=== PATIENT | female | born 1990 | race Caucasian/White ===

== ENCOUNTER → 2020-01-22 09:11 | Outpatient (BNVA) | payer MEDICAID, SELFPAY | PROVIDERS: Family Provider Nurse Practitioner; PCP Nurse Practitioner; Visit Provider Nurse Practitioner | DX: F42.9 Obsessive-compulsive disorder, unspecified (principal); Q75.4 Mandibulofacial dysostosis; F72 Severe intellectual disabilities | CPT/HCPCS: 99214 ==

== ENCOUNTER → 2020-04-13 07:45 | Outpatient (BNVA) | payer MEDICAID, SELFPAY | PROVIDERS: Family Provider Nurse Practitioner; PCP Nurse Practitioner; Visit Provider Nurse Practitioner | DX: F72 Severe intellectual disabilities (principal); F42.9 Obsessive-compulsive disorder, unspecified; Q75.4 Mandibulofacial dysostosis | CPT/HCPCS: 99214 ==

== ENCOUNTER → 2020-05-10 07:40 | Outpatient (BNVA) | payer MEDICAID, SELFPAY | PROVIDERS: Family Provider Nurse Practitioner; PCP Nurse Practitioner; Visit Provider Nurse Practitioner | DX: F72 Severe intellectual disabilities (principal); Q75.4 Mandibulofacial dysostosis; F42.9 Obsessive-compulsive disorder, unspecified | CPT/HCPCS: 99214 ==

== ENCOUNTER → 2020-05-24 08:55 | Outpatient (BNVA) | payer MEDICAID, SELFPAY | PROVIDERS: Family Provider Nurse Practitioner; PCP Nurse Practitioner; Visit Provider Nurse Practitioner | DX: K59.09 Other constipation (principal); F42.9 Obsessive-compulsive disorder, unspecified; F72 Severe intellectual disabilities; Q75.4 Mandibulofacial dysostosis; F43.12 Post-traumatic stress disorder, chronic; Z11.3 Encounter for screening for infections with a predominantly sexual mode of transmission | CPT/HCPCS: 74018; 80053; 80061; 83036; 85025; 86592 ==

== ENCOUNTER → 2020-05-26 11:43 | Outpatient (BNVA) | payer MEDICAID, SELFPAY | PROVIDERS: Family Provider Nurse Practitioner; PCP Nurse Practitioner; Visit Provider Nurse Practitioner | DX: K59.09 Other constipation (principal); Z11.3 Encounter for screening for infections with a predominantly sexual mode of transmission | CPT/HCPCS: 81000 ==

== ENCOUNTER → 2020-05-31 11:25 | Outpatient (BNVA) | payer MEDICAID, SELFPAY | PROVIDERS: Family Provider Nurse Practitioner; PCP Nurse Practitioner; Visit Provider Nurse Practitioner Women's Health | DX: Z30.9 Encounter for contraceptive management, unspecified (principal); F42.9 Obsessive-compulsive disorder, unspecified; Z30.013 Encounter for initial prescription of injectable contraceptive | CPT/HCPCS: 88175 ==

== ENCOUNTER → 2020-06-07 07:56 | Outpatient (BNVA) | payer MEDICAID, SELFPAY | PROVIDERS: Family Provider Nurse Practitioner; PCP Nurse Practitioner; Visit Provider Nurse Practitioner | DX: F72 Severe intellectual disabilities (principal); Q75.4 Mandibulofacial dysostosis; F42.9 Obsessive-compulsive disorder, unspecified | CPT/HCPCS: 99213 ==

== ENCOUNTER → 2020-09-06 07:49 | Outpatient (BNVA) | payer MEDICAID, SELFPAY | PROVIDERS: Family Provider Nurse Practitioner; PCP Nurse Practitioner; Visit Provider Nurse Practitioner | DX: F42.9 Obsessive-compulsive disorder, unspecified (principal); F72 Severe intellectual disabilities; Q75.4 Mandibulofacial dysostosis | CPT/HCPCS: 99213 ==

== ENCOUNTER → 2020-12-02 07:41 | Outpatient (BNVA) | payer MEDICAID, SELFPAY | PROVIDERS: Family Provider Nurse Practitioner; PCP Nurse Practitioner; Visit Provider Nurse Practitioner | DX: F42.9 Obsessive-compulsive disorder, unspecified (principal); Q75.4 Mandibulofacial dysostosis; F72 Severe intellectual disabilities | CPT/HCPCS: 99213 ==

== ENCOUNTER → 2021-02-23 10:05 | Outpatient (BNVA) | payer MEDICAID, SELFPAY | PROVIDERS: Family Provider Nurse Practitioner; PCP Nurse Practitioner; Visit Provider Nurse Practitioner | DX: F42.9 Obsessive-compulsive disorder, unspecified (principal); F72 Severe intellectual disabilities; Q75.4 Mandibulofacial dysostosis | CPT/HCPCS: 99214 ==

== ENCOUNTER → 2021-05-12 09:56 | Outpatient (BNVA) | payer MEDICAID, SELFPAY | PROVIDERS: Family Provider Nurse Practitioner; PCP Nurse Practitioner; Visit Provider Nurse Practitioner | DX: F42.9 Obsessive-compulsive disorder, unspecified (principal); Q75.4 Mandibulofacial dysostosis; F72 Severe intellectual disabilities | CPT/HCPCS: 99214 ==

== ENCOUNTER → 2021-06-09 08:35 | Outpatient (BNVA) | payer MEDICAID, SELFPAY | PROVIDERS: Family Provider Nurse Practitioner; PCP Nurse Practitioner; Visit Provider Nurse Practitioner | DX: F42.9 Obsessive-compulsive disorder, unspecified (principal) | CPT/HCPCS: 81000 ==

== ENCOUNTER → 2021-06-12 08:47 | Outpatient (BNVA) | payer MEDICAID, SELFPAY | PROVIDERS: Family Provider Nurse Practitioner; PCP Nurse Practitioner; Visit Provider Nurse Practitioner | DX: F42.9 Obsessive-compulsive disorder, unspecified (principal); Z13.6 Encounter for screening for cardiovascular disorders | CPT/HCPCS: 80053; 80061; 84443; 85025 ==

== ENCOUNTER → 2021-07-14 07:43 | Outpatient (BNVA) | payer MEDICAID, SELFPAY | PROVIDERS: Family Provider Nurse Practitioner; PCP Nurse Practitioner; Visit Provider Nurse Practitioner | DX: F42.9 Obsessive-compulsive disorder, unspecified (principal); Q75.4 Mandibulofacial dysostosis; F72 Severe intellectual disabilities | CPT/HCPCS: 99214 ==

== ENCOUNTER → 2021-10-11 10:05 | Outpatient (BNVA) | payer MEDICAID, SELFPAY | PROVIDERS: Family Provider Nurse Practitioner; PCP Nurse Practitioner; Visit Provider Nurse Practitioner | DX: F42.9 Obsessive-compulsive disorder, unspecified (principal); F72 Severe intellectual disabilities; Q75.4 Mandibulofacial dysostosis | CPT/HCPCS: 99214 ==

== ENCOUNTER → 2022-01-02 09:49 | Outpatient (BNVA) | payer MEDICAID, SELFPAY | PROVIDERS: Family Provider Nurse Practitioner; PCP Nurse Practitioner; Visit Provider Nurse Practitioner | DX: F42.9 Obsessive-compulsive disorder, unspecified (principal); F72 Severe intellectual disabilities; Q75.4 Mandibulofacial dysostosis | CPT/HCPCS: 99214 ==

== ENCOUNTER 2022-03-01 13:30 | Emergency (ER) | payer MEDICAID, SELFPAY ==
[2022-03-01 13:53] VITALS: BP 109/76; PULSE 116; RESP 18; TEMP 36.3; O2SAT 95
--- NOTE | 2022-03-01 14:10 | XR_ITS ---
WS: [id number] XR hand RT min 3V* [id number] REASON FOR EXAM: index finger bruising and swelling FINDINGS: Soft tissue swelling of the index finger. No fracture or other bony or joint abnormality of the index finger. The remainder of the right hand demonstrates no significant bony or joint abnormality. XR/XR hand RT min 3V* [id number] IMPRESSION: No fracture or dislocation.
--- NOTE | 2022-03-01 14:22 | W.ED.EXTPRO ---
HPI - Extremity Problem General: Chief complaint: Extremity Injury, Upper Stated complaint: injury to finger on right hand Time Seen by Provider: 03/01/22 14:09 History of Present Illness: Patient is a 31-year-old female who comes to the ED with right index finger bruising and swelling. 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 Patient lives in a intermediate and is here with pit clerk. She says that yesterday patient hit her hand on a picnic table and then punched it as well. She was given 325 mg of Tylenol around noon today for pain. Associated symptoms: Deny chest pain, fever(s) or rash Review of Systems Const: Denies: fever(s), chills or fatigue Eyes: Denies: change in vision or eye discomfort ENMT: Denies: throat pain, odynophagia, nasal discharge or nasal congestion Card: Denies: chest pain, palpitations, edema, swelling of feet/ankles, dyspnea on exertion or orthopnea Resp: Denies: dyspnea, productive cough or non-productive cough GI: Denies: abdominal pain, nausea, vomiting, diarrhea, constipation or hematochezia : Denies: flank pain, dysuria or hematuria Musc: Reports: extremity pain (right index finger) and extremity swelling (Right index finger); Denies: neck pain or back pain Skin/Breast: Denies: rash or new lesions Neuro: Denies: headache(s), numbness in extremities or weakness in extremities [facility] ED PFSH: Medical History Chronic constipation Chronic organic brain syndrome Dry eyes Obsessive-compulsive disorder, unspecified Psychiatric care Raynaud's disease Severe intellectual disabilities Treacher Blank syndrome Surgical History History of eye surgery (~2007) multiple eye surgeries Family History Other Unknown family medical history Social History Smoking and tobacco status: never smoked Second hand smoke exposure: No Smoking risk assessment/counseling performed?: No Alcohol intake: never Desire information about alcohol rehabilitation?: No Counseling given: No Desire information about substance/drug rehabilitation?: No Counseling given: No Adopted: Yes Caregiver/support person: Yes Lives independently: No Household members: caregiver and other Housing: House Marital status: Single Number of children: 0 Number of grandchildren: 0 service: No Current occupational status: disabled Current occupational exposures/hazards: No Pets and animals: No History of recent travel: No Sexually active: No Current gender identity: Female Special mae needs: No Additional social history: - Tobacco use: Denies Alcohol use: Denies Drug use: Denies Physical Exam Const: COMMON NORMALS: alert EXAM LIMITATIONS: other limitations (Severe intellectual disability and nonverbal) HENMT: COMMON NORMALS: normocephalic HEAD & SCALP: normocephalic MOUTH: Normal oral and palatal mucosa present THROAT: posterior oropharynx normal and uvula midline Neck/C-Spine: COMMON NORMALS: supple GENERAL: Yes normal visual inspection Resp: COMMON NORMALS: normal respiratory effort, No retractions, No use of accessory muscles and clear to auscultation bilaterally AUSCULTATION: clear to auscultation bilaterally Cardio: COMMON NORMALS: regular rate, regular rhythm, S1 normal heart sound present, S2 normal heart sound present, No gallops present (Cardio), No clicks present (Cardio), No murmurs present (Cardio) and Peripheral pulses 2+ throughout RATE: regular rate RHYTHM: regular rhythm HEART SOUNDS: S1 normal heart sound present and S2 normal heart sound present PERIPHERAL PULSES: Peripheral pulses 2+ throughout GI: COMMON NORMALS: Normal to inspection, nondistended, normoactive bowel sounds present, Soft to palpation, non-tender and no masses PALPATION: Yes Soft to palpation : COMMON NORMALS: Yes no CVA tenderness BLADDER/KIDNEY EXAM: Yes no CVA tenderness Back/Pelvis: COMMON NORMALS: no CVA tenderness Extremity: NARRATIVE EXTREMITY EXAM: Right index finger has swelling and ecchymosis seen in between the MCP and PIP joint. No damage to distal tip of finger. Does appear to be uncomfortable with palpation of index finger. Neurovascular tact. No nailbed or nail damage noted. Neuro: COMMON NORMALS: moves all extremities SENSORIUM/ORIENTATION: Yes alert Skin: GENERAL SKIN EXAM: dry skin Course Vital Signs: Vital signs: Vital Signs Temperature 97.3 F L 03/01/22 13:53 Pulse Rate 116 H 03/01/22 13:53 Respiratory Rate 18 03/01/22 13:53 Blood Pressure 109/76 03/01/22 13:53 Pulse Oximetry 95 03/01/22 13:53 MDM - Extremity (Nontraumatic) Medical Decision Making Patient is a 31-year-old female comes to the ED with right index finger swelling bruising after she hit it on a picnic table. 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 She is here with her pit clerk. No visible deformity seen. Patient does have ecchymosis and swelling of the right index finger. No nailbed or nail damage seen. Neurovascular tact. X-ray of right hand showed no acute fractures or findings. Patient diagnosed with contusion of index finger and discharged home.. return ED precautions given. Patient's caretakerunderstood agree with plan. Lab Data Radiology Impressions Hand X-Ray 03/01/22 14:10 IMPRESSION: No fracture or dislocation. Discharge Plan Discharge Patient Disposition: Home Clinical Impression: Contusion of finger of right hand Qualifiers: Encounter type: initial encounter Finger: index finger Damage to nail status: without damage Qualified Code(s): S60.021A - Contusion of right index finger without damage to nail, initial encounter Condition: Stable Prescriptions: No Action calcium carbonate-vitamin D3 600-125 mg-unit tablet 1 tab PO DAILY 30 Days Qty: 30 11RF medroxyprogesterone [Depo-Provera] 150 mg/mL syringe 150 mg IM .[id number] Qty: 1 3RF alum-mag hydroxide-simeth [Felicia-Lanta] 200-200-20 mg/5 mL suspension 30 ml PO QID PRN (Reason: indigestion) Qty: 355 0RF Rx Instructions: administer between meals lactulose 10 gram/15 mL solution 20 g PO DAILY PRN (Reason: constipation) 30 Days Qty: 900 11RF Rx Instructions: May hold if loose stools magnesium hydroxide [Milk of Magnesia] 400 mg/5 mL suspension 15 ml PO BID PRN (Reason: constipation) 30 Days Qty: 900 11RF Rx Instructions: may hold if loose stools omega-3 fatty acids [Fish Oil Concentrate] 1,000 mg capsule 2,000 mg PO DAILY 30 Days Qty: 60 11RF sennosides [Senna Laxative] 8.6 mg tablet 8.6 mg PO BID Qty: 60 11RF sodium chloride [[place] Saline] 0.65 % aerosol,spray 2 spray intranasal TID PRN (Reason: dry nasal passages) Qty: 50 0RF sunscreen Lotion See Rx Instructions TOPICAL 6XD PRN (Reason: sun exposure) Qty: 118 11RF Rx Instructions: Use SPF 50 topical 6 times daily PRN; apply at least 30 minutes before sun exposure aripiprazole [Abilify] 10 mg tablet 10 mg PO DAILY Qty: 30 2RF benztropine 1 mg tablet 1 mg PO TID Qty: 90 2RF clonazepam 0.5 mg tablet 0.5 mg PO TID Qty: 90 2RF fluvoxamine 100 mg tablet 100 mg PO .COMPLEX Qty: 90 2RF Rx Instructions: 100 mg PO; 1 tab in the am and 2 tabs at bedtime quetiapine [Seroquel XR] 300 mg tablet extended release 24 hr 300 mg PO TID Qty: 90 2RF topiramate [Topamax] 50 mg tablet 50 mg PO QAM Qty: 30 2RF promethazine-DM 6.25-15 mg/5 mL syrup 5 ml PO Q6H PRN (Reason: cough) Qty: 240 5RF acetaminophen [Tylenol] 325 mg capsule 650 mg PO Q6H PRN (Reason: fever or pain) Qty: 30 5RF Rx Instructions: for pain or elevated temp > 101F olopatadine [Pataday] 0.2 % drops 1 drop ophthalmic (eye) DAILY PRN (Reason: allegies) 30 Days Qty: 2.5 11RF doxycycline hyclate 100 mg capsule 100 mg PO BID 10 Days Qty: 20 0RF Rx Instructions: Take with food, remain upright for at least two hours. mupirocin 2 % ointment 1 applic topical TID Qty: 22 0RF Rx Instructions: Apply at 8am, 2pm, and 8pm. fluticasone propionate [Children's Flonase Allergy Rlf] 50 mcg/actuation spray,suspension 2 spray INTRANASAL DAILY Qty: 16 5RF loperamide 2 mg tablet 2 mg PO Q3H PRN (Reason: loose stool) 30 Days Qty: 32 11RF Rx Instructions: 1 tab after each loose stool, NTE 8 doses or 16mg in 24 hours clonazepam 1 mg tablet 1 mg PO DAILY PRN (Reason: anxiety) Qty: 30 0RF Niva-Plus 27 mg iron- 1 mg tablet See Rx Instructions PO .COMPLEX 30 Days Qty: 30 11RF Rx Instructions: 1 tab daily PO; hydrocortisone 0.5 % cream 1 applic topical BID PRN (Reason: skin irritation) Qty: 28.4 5RF Discharge Orders: Discharge ED (Routine); Ordered 03/01/22 Ordered By: Young Nolasco Referrals: Juni Marrufo, HE[employer] SEALING MACHINE OPERATOR-C [Primary Care Provider] - Discharge Diet: Regular Discharge Activity: Increase activity as tolerated Activity Restrictions/Additional Instructions: Follow-up with medical provider as directed in the next 7 to 10 days reevaluation. Apply cold pack on finger to help with symptoms. Continue taking all home medications as previously prescribed. You can take [id number] Tylenol as needed for pain. Return to the ER or your medical provider if condition worsens. Please read and understand discharge instructions. Thank you for choosing [facility] for your healthcare needs today. Please realize this is an emergency room and that we are providing you with a medical screening exam and this may not be complete and all inclusive of all the testing and or work up that you may need to determine your ailment or severity of your illness. It is very important that you follow up as instructed or that you return to the Emergency Department should you have concerns or if your condition changes or worsens in any way. Coding Level of Care Code ED Milk Route Supervisor for Luis Fernando Donovan Exam Comprehensive
== END 2022-03-01 15:12 | disposition home or self-care (01) ==
PROVIDERS: Emergency Provider Physician Assistant; PCP Nurse Practitioner
DX: S60.021A Contusion of right index finger without damage to nail, initial encounter (principal); W22.8XXA Striking against or struck by other objects, initial encounter; F72 Severe intellectual disabilities
CPT/HCPCS: 73130; 99281

== ENCOUNTER → 2022-03-27 09:40 | Outpatient (BNVA) | payer MEDICAID, SELFPAY | PROVIDERS: PCP Nurse Practitioner; Visit Provider Nurse Practitioner | DX: F42.9 Obsessive-compulsive disorder, unspecified (principal); F72 Severe intellectual disabilities; Q75.4 Mandibulofacial dysostosis | CPT/HCPCS: 99214 ==

== ENCOUNTER → 2022-06-11 10:34 | Outpatient (BNVA) | payer MEDICAID, SELFPAY | PROVIDERS: PCP Nurse Practitioner; Visit Provider Nurse Practitioner | DX: Z76.0 Encounter for issue of repeat prescription (principal); K30 Functional dyspepsia; K59.09 Other constipation; J30.89 Other allergic rhinitis; H04.123 Dry eye syndrome of bilateral lacrimal glands; R09.82 Postnasal drip; Z11.3 Encounter for screening for infections with a predominantly sexual mode of transmission; Z13.6 Encounter for screening for cardiovascular disorders; Z11.1 Encounter for screening for respiratory tuberculosis; Q75.4 Mandibulofacial dysostosis; F72 Severe intellectual disabilities | CPT/HCPCS: 86580 ==

== ENCOUNTER → 2022-06-11 11:02 | Outpatient (BNVA) | payer MEDICAID, SELFPAY | PROVIDERS: PCP Nurse Practitioner; Visit Provider Nurse Practitioner | DX: Z11.3 Encounter for screening for infections with a predominantly sexual mode of transmission (principal); Z13.6 Encounter for screening for cardiovascular disorders | CPT/HCPCS: 80053; 85025; 86592 ==

== ENCOUNTER → 2022-06-13 10:28 | Outpatient (BNVA) | payer MEDICAID, SELFPAY | PROVIDERS: PCP Nurse Practitioner; Visit Provider Nurse Practitioner | DX: Z11.3 Encounter for screening for infections with a predominantly sexual mode of transmission (principal); Z13.6 Encounter for screening for cardiovascular disorders | CPT/HCPCS: 81000 ==

== ENCOUNTER → 2022-12-17 13:37 | Outpatient (BNVA) | payer MEDICAID, SELFPAY | PROVIDERS: PCP Nurse Practitioner; Visit Provider Nurse Practitioner | DX: Z79.899 Other long term (current) drug therapy (principal) | CPT/HCPCS: 80061; 83036 ==

== ENCOUNTER 2023-05-27 15:00 | Observation (INO) | payer MEDICAID, SELFPAY ==
--- NOTE | 2023-05-27 15:03 | XRR_ITS ---
PROCEDURE INFORMATION: Exam: XR Chest Exam date and time: 05/27/2023 3:08 PM Age: 33 years old Clinical indication: Cough TECHNIQUE: Imaging protocol: Radiologic exam of the chest. Views: 1 view. COMPARISON: CR XR abdomen 1V* [id number] 05/24/2020 8:54 AM FINDINGS: Lungs: Parenchymal density left lower lobe of possible pneumonia this finding was not present on prior examination Pleural spaces: Unremarkable. No pleural effusion. No pneumothorax. Heart/Mediastinum: Unremarkable. No cardiomegaly. Bones/joints: Unremarkable. XR/XR chest 1V portable [id number] IMPRESSION: Left lower lobe parenchymal density consistent with pneumonia
[2023-05-27 15:24] LABS: Basophils % 0.1 %; Eosinophils % 0.1 %; Hematocrit 42.7 % (37.0-47.0); Hemoglobin 13.3 g/dL (11.5-15.3); Lymphocytes # 1.2 10^3/uL (0.8-4.8); Lymphocytes % 14.7 %; Mean Corpuscular HGB Conc 31.1 g/dL (30.0-36.0); Mean Corpuscular Hemoglobin 31.3 pg (28.0-34.0); Mean Corpuscular Volume 100.5 fl (81-99); Mean Platelet Volume 11.9 fL (7.4-10.4); Monocytes # 0.2 10^3/uL (0.2-0.9); Neutrophils # 6.51 10^3/uL (1.8-7.7); Neutrophils % 81.7 %; Nucleated Red Blood Cells % 0 %; Platelet Count 113 10^3/cmm (130-400); Red Blood Count 4.25 10^6/uL (4.1-5.3)
[2023-05-27 15:32] VITALS: BP 98/62; PULSE 116; RESP 16; TEMP 36.3; O2SAT 94; BMI 22.3
[2023-05-27 15:39] LABS: Alanine Aminotransferase 26 U/L (0-33); Albumin Level 3.4 g/dL (3.5-5.2); Alkaline Phosphatase 53 U/L (35-105); Blood Urea Nitrogen 9 mg/dL (6-20); Calcium 9.3 mg/dL (8.5-10.5); Carbon Dioxide 19 mmol/L (22-29); Chloride 107 mmol/L (98-107); Creatinine Clr Calc Pharmacy 77.6899; Globulin 3.7 g/dL (1.3-4.6); Glomerular Filtration Rate 71.3 mL/min (90-130); Glucose 83 mg/dL (65-115); Osmolality Calculated 286 mOsm/kg (285-295); Sodium 139 mmol/L (136-145); Total Bilirubin 0.2 mg/dL (0.15-1.2); Total Protein 7.1 g/dL (6.6-8.7)
[2023-05-27 15:42] LABS: Anion Gap 16.8 (5-19); Aspartate Amino Transferase 28 U/L (0-32); Potassium 3.8 mmol/L (3.5-5.1)
[2023-05-27 16:44] VITALS: BP 93/75; PULSE 114; RESP 18; O2SAT 93
[2023-05-27] MEDS: cefTRIAXone 1,000 MG in sodium chloride 0.9% (plus) 50 ML 100 MG IV (16:48)
--- NOTE | 2023-05-27 17:00 | W.ED.GENADLT ---
HPI - General Adult General: Chief complaint: General Medical Stated complaint: bob sent for labs/KUB/xray Time Seen by Provider: 05/27/23 16:14 Source: other Mode of arrival: ambulatory Limitations: altered mental status History of Present Illness: 33-year-old female who is here has a history of severe intellectual disabilities lives in [facility]. Patient's roommate was seen here earlier admitted with pneumonia patient also had a cough fever and shortness of breath pulse ox here is in the low 90s. History is not obtainable from her due to her mental disability. She is actively coughing here. Review of Systems General: Reports: ROS unobtainable due to mental status PFSH ED PFSH: Medical History Chronic constipation Chronic organic brain syndrome Dry eyes Obsessive-compulsive disorder, unspecified On combination antipsychotic drug therapy Psychiatric care Raynaud's disease Severe intellectual disabilities Treacher Blank syndrome Surgical History History of eye surgery (~2007) multiple eye surgeries Family History Other Unknown family medical history Social History Smoking and tobacco status: never smoked Second hand smoke exposure: No Smoking risk assessment/counseling performed?: No Alcohol intake: never Desire information about alcohol rehabilitation?: No Counseling given: No Substance/Drug Use: never Desire information about substance/drug rehabilitation?: No Counseling given: No Adopted: Yes Caregiver/support person: Yes Lives independently: No Housing: House Marital status: Single Number of children: 0 Number of grandchildren: 0 service: No Current occupational exposures/hazards: No Pets and animals: No Sexually active: No Do you think of yourself as: Straight/Heterosexual Special mae needs: No Physical Exam Const: COMMON NORMALS: negative for patient oriented x3 GENERAL APPEARANCE: ill appearing HENMT: COMMON NORMALS: normocephalic and atraumatic HEAD & SCALP: normocephalic and atraumatic Eye: COMMON NORMALS: conjunctivae normal CONJUNCTIVA: Yes conjunctivae normal Neck/C-Spine: COMMON NORMALS: full ROM and supple Chest: COMMONS NORMALS: normal inspection of the chest and normal palpation of entire chest wall Resp: COMMON NORMALS: No retractions EFFORT & INSPECTION: Yes tachypneic AUSCULTATION: rales Cardio: COMMON NORMALS: regular rhythm and No murmurs present (Cardio) RATE: tachycardic RHYTHM: regular rhythm GI: COMMON NORMALS: Normal to inspection, nondistended, normoactive bowel sounds present, Soft to palpation, non-tender and no masses PALPATION: Yes Soft to palpation Extremity: COMMON NORMALS: normal to inspection and full ROM Neuro: COMMON NORMALS: moves all extremities and no focal motor deficits; negative for patient oriented x3 Psych: COMMON NORMALS: Normal thought process present and cooperative THOUGHT PROCESS: Normal thought process present Skin: COMMON NORMALS: no rashes or lesions noted and no wounds GENERAL SKIN EXAM: no rashes or lesions noted Course Vital Signs: Vital signs: Vital Signs Temperature 97.4 F L 05/27/23 15:32 Pulse Rate 114 H 05/27/23 16:44 Respiratory Rate 18 05/27/23 16:44 Blood Pressure 93/75 05/27/23 16:44 Pulse Oximetry 93 05/27/23 16:44 Oxygen Delivery Me thod Room Air 05/27/23 16:44 MDM - General Adult Medical Decision Making Patient presents here with left lower lobe pneumonia she has some mild hypoxia spoke to the hospitalist will admit at this time. Medical Records I reviewed the patient's medical records. Lab Data I reviewed the patient's lab results. 05/27/23 15:16 05/27/23 15:16 Radiology Impressions Chest X-Ray 05/27/23 15:03 IMPRESSION: Left lower lobe parenchymal density consistent with pneumonia Laboratory Results WBC 8.0 10^3/uL (4.0-10.0) 05/27/23 15:16 RBC 4.25 10^6/uL (4.1-5.3) 05/27/23 15:16 Hgb 13.3 g/dL (11.5-15.3) 05/27/23 15:16 Hct 42.7 % (37.0-47.0) 05/27/23 15:16 MCV 100.5 fl (81-99) H 05/27/23 15:16 MCH 31.3 pg (28.0-34.0) 05/27/23 15:16 MCHC 31.1 g/dL (30.0-36.0) 05/27/23 15:16 RDW 12.0 % (12.1-15.1) L 05/27/23 15:16 Plt Count 113 10^3/cmm (130-400) L 05/27/23 15:16 MPV 11.9 fL (7.4-10.4) H 05/27/23 15:16 Neut % (Auto) 81.7 % 05/27/23 15:16 Lymph % (Auto) 14.7 % 05/27/23 15:16 Frio % (Auto) 3.0 % 05/27/23 15:16 Eos % (Auto) 0.1 % 05/27/23 15:16 Baso % (Auto) 0.1 % 05/27/23 15:16 Neut # (Auto) 6.51 10^3/uL (1.8-7.7) 05/27/23 15:16 Lymph # (Auto) 1.2 10^3/uL (0.8-4.8) 05/27/23 15:16 Frio # (Auto) 0.2 10^3/uL (0.2-0.9) 05/27/23 15:16 Eos # (Auto) 0.0 10^3/uL (0.0-0.8) 05/27/23 15:16 Baso # (Auto) 0.0 10^3/uL (0.0-0.1) 05/27/23 15:16 Nucleated RBC % (auto) 0 % 05/27/23 15:16 Nucleated RBCs # 0.0 /100WBC 05/27/23 15:16 Sodium 139 mmol/L (136-145) 05/27/23 15:16 Potassium 3.8 mmol/L (3.5-5.1) 05/27/23 15:16 Chloride 107 mmol/L (98-107) 05/27/23 15:16 Carbon Dioxide 19 mmol/L (22-29) L 05/27/23 15:16 Anion Gap 16.8 (5-19) 05/27/23 15:16 BUN 9 mg/dL (6-20) 05/27/23 15:16 Creatinine 0.9 mg/dL (0.5-0.9) 05/27/23 15:16 GFR Calculation 71.3 mL/min (90-130) L 05/27/23 15:16 Glucose 83 mg/dL (65-115) 05/27/23 15:16 Calculated Osmolality 286 mOsm/kg (285-295) 05/27/23 15:16 Calcium 9.3 mg/dL (8.5-10.5) 05/27/23 15:16 Total Bilirubin 0.2 mg/dL (0.15-1.2) 05/27/23 15:16 AST 28 U/L (0-32) 05/27/23 15:16 ALT 26 U/L (0-33) 05/27/23 15:16 Alkaline Phosphatase 53 U/L (35-105) 05/27/23 15:16 Total Protein 7.1 g/dL (6.6-8.7) 05/27/23 15:16 Albumin 3.4 g/dL (3.5-5.2) L 05/27/23 15:16 Globulin 3.7 g/dL (1.3-4.6) 05/27/23 15:16 Discharge Plan Discharge Patient Disposition: Admitted As Inpatient Clinical Impression: Treacher Blank syndrome, Severe intellectual disabilities, Pneumonia, Acute respiratory failure with hypoxia Condition: Stable Prescriptions: No Action acetaminophen [Tylenol] 325 mg capsule 650 mg PO Q6H PRN (Reason: fever or pain) Qty: 30 5RF Rx Instructions: for pain or elevated temp > 101F alum-mag hydroxide-simeth [Felicia-Lanta] 200-200-20 mg/5 mL suspension 30 ml PO QID PRN (Reason: indigestion) Qty: 355 0RF Rx Instructions: administer between meals lactulose 10 gram/15 mL solution 20 g PO DAILY PRN (Reason: constipation) 30 Days Qty: 900 11RF Rx Instructions: May hold if loose stools loperamide 2 mg tablet 2 mg PO Q3H PRN (Reason: loose stool) 30 Days Qty: 32 11RF Rx Instructions: 1 tab after each loose stool, NTE 8 doses or 16mg in 24 hours Niva-Plus 27 mg iron- 1 mg tablet See Rx Instructions PO .COMPLEX 30 Days Qty: 30 11RF Rx Instructions: 1 tab daily PO; omega-3 fatty acids 1,000 mg capsule 2,000 mg PO DAILY 30 Days Qty: 60 11RF sennosides [Senna Laxative] 8.6 mg tablet 8.6 mg PO BID Qty: 60 11RF sunscreen Lotion See Rx Instructions TOPICAL 6XD PRN (Reason: sun exposure) Qty: 118 11RF Rx Instructions: Use SPF 50 topical 6 times daily PRN; apply at least 30 minutes before sun exposure topiramate [Topamax] 50 mg tablet 50 mg PO QAM Qty: 30 2RF hydrocortisone 0.5 % cream 1 applic topical BID PRN (Reason: skin irritation) Qty: 28.4 5RF promethazine-DM 6.25-15 mg/5 mL syrup 5 ml PO Q6H PRN (Reason: cough) Qty: 240 5RF clonazepam 1 mg tablet 1 mg PO DAILY PRN (Reason: anxiety) Qty: 30 0RF benztropine 1 mg tablet See Rx Instructions .ROUTE .COMPLEX Qty: 90 2RF Dose Instruction: TAKE ONE TABLET BY MOUTH THREE TIMES DAILY Rx Instructions: TAKE ONE TABLET BY MOUTH THREE TIMES DAILY magnesium hydroxide [Milk of Magnesia] 400 mg/5 mL suspension 15 ml PO BID PRN (Reason: constipation) 30 Days Qty: 900 11RF Rx Instructions: may hold if loose stools clonazepam 0.5 mg tablet 0.5 mg PO TID Qty: 90 2RF medroxyprogesterone 150 mg/mL suspension See Rx Instructions .ROUTE .COMPLEX Qty: 1 3RF Dose Instruction: inject 1ml INTRAMUSCULARLY every THREE MONTHS Rx Instructions: inject 1ml INTRAMUSCULARLY every THREE MONTHS fluvoxamine 100 mg tablet See Rx Instructions .ROUTE .COMPLEX Qty: 90 2RF Dose Instruction: TAKE ONE TABLET BY MOUTH in THE morning AND 2 tablets AT BEDTIME Rx Instructions: TAKE ONE TABLET BY MOUTH in THE morning AND 2 tablets AT BEDTIME quetiapine 400 mg tablet extended release 24 hr See Rx Instructions .ROUTE .COMPLEX Qty: 60 2RF Dose Instruction: TAKE ONE TABLET BY MOUTH TWICE DAILY Rx Instructions: TAKE ONE TABLET BY MOUTH TWICE DAILY calcium carbonate-vitamin D3 600 mg-20 mcg (800 unit) tablet See Rx Instructions .ROUTE .COMPLEX Qty: 30 12RF Dose Instruction: TAKE ONE TABLET BY MOUTH EVERY DAY Rx Instructions: TAKE ONE TABLET BY MOUTH EVERY DAY aripiprazole 10 mg tablet See Rx Instructions .ROUTE .COMPLEX Qty: 30 2RF Dose Instruction: TAKE ONE TABLET BY MOUTH EVERY DAY Rx Instructions: TAKE ONE TABLET BY MOUTH EVERY DAY Referrals: Juni Marrufo, DIRECTOR OF NEIGHB[facility]HOOD [facility]ICE C[facility]-C [Primary Care Provider] - Coding Level of Care Code ED Claim Taker for Luis Fernando Donovan
[2023-05-27] MEDS: sodium chloride 0.9% 1,000 ML 999 ML IV ×3 (17:17→22:10)
[2023-05-27] MEDS: azithromycin 500 MG in sodium chloride 0.9% 250 ML 250 MG IV (17:17)
[2023-05-27 17:40] LABS: Lactic Sepsis W/Reflex 0.7 mmol/L (0.5-2.2)
[2023-05-27 17:41] LABS: SARS Covid-2 Antigen negative (Negative)
--- NOTE | 2023-05-27 18:10 | PM.HP ---
Providers/Chief Complaint Primary Care Provider: BETTINA HowardC Chief Complaint: bob sent for labs/KUB/xray History of Present Illness Shannon Tariq is a 33 year old female who has been sent from the clinic for shortness of breath., Productive cough. Her roommate was recently diagnosed with mycoplasma pneumonia. Patient has not been septic in the ER however she is tachycardic with low blood pressure afebrile no leukocytosis. No acidosis. Patient has intellectual challenges. Chest x-ray consistent with pneumonia. Patient is nonverbal at baseline, history has been taken from the caregiver who is at the bedside At the halfway patient experiencing diarrhea which is chronic despite diarrhea they keep giving her senna S and lactulose when asked about the reason they said antipsychotics caused bad constipation thus why they do not stop laxatives, patient spiked fever at home, she was getting short of breath that prompted her visit to the ER Review of Systems General: Reports: ROS unobtainable due to mental status Medications/Allergies Home Medications Medication Instructions Recorded Confirmed Last Taken Type acetaminophen 325 mg capsule 650 mg PO Q6H PRN fever or pain 06/11/22 05/27/23 Unknown Rx (Tylenol) #30 caps aluminum-mag hydroxide-simethicone 30 ml PO QID PRN indigestion #355 06/11/22 05/27/23 Unknown Rx 200 mg-200 mg-20 mg/5 mL oral susp mL (Felicia-Lanta) lactulose 10 gram/15 mL oral 20 g (30 mL) PO DAILY PRN 06/11/22 05/27/23 Unknown Rx solution constipation 30 days #900 mL loperamide 2 mg tablet 2 mg PO Q3H PRN loose stool 30 06/11/22 05/27/23 Unknown Rx days #32 tabs multivit with [id number] See Rx Instructions PO .COMPLEX 30 06/11/22 05/27/23 Unknown Rx fumarate-folic acid 27 mg-1 mg days #30 tabs tablet (Niva-Plus) omega-3 fatty acids 1,000 mg 2,000 mg PO DAILY 30 days #60 caps 06/11/22 05/27/23 Unknown Rx capsule sennosides 8.6 mg tablet (Senna 8.6 mg PO BID #60 tabs 06/11/22 05/27/23 Unknown Rx Laxative) sunscreen lotion See Rx Instructions topical 6XD 06/11/22 05/27/23 Unknown Rx PRN sun exposure #118 mL clonazepam 1 mg tablet 1 mg PO DAILY PRN anxiety #30 tabs 11/07/22 05/27/23 Unknown Rx topiramate 50 mg tablet (Topamax) 50 mg PO QAM #30 tabs 12/06/22 05/27/23 Unknown Rx hydrocortisone 0.5 % topical cream 1 applic topical BID PRN skin 12/17/22 05/27/23 Unknown Rx irritation #28.4 grams promethazine-DM 6.25 mg-15 mg/5 mL 5 ml PO Q6H PRN cough #240 mL 12/17/22 05/27/23 Unknown Rx oral syrup benztropine 1 mg tablet See Rx Instructions .Route 03/01/23 05/27/23 Unknown Rx .COMPLEX #90 tabs magnesium hydroxide 400 mg/5 mL 15 ml PO BID PRN constipation 30 03/19/23 05/27/23 Unknown Rx oral suspension (Milk of Magnesia) days #900 mL clonazepam 0.5 mg tablet 0.5 mg PO TID #90 tabs 03/26/23 05/27/23 Unknown Rx medroxyprogesterone 150 mg/mL See Rx Instructions .Route 04/03/23 05/27/23 Unknown Rx intramuscular suspension .COMPLEX #1 mL fluvoxamine 100 mg tablet See Rx Instructions .Route 04/24/23 05/27/23 Unknown Rx .COMPLEX #90 tabs quetiapine 400 mg tablet,extended See Rx Instructions .Route 04/24/23 05/27/23 Unknown Rx release 24 hr .COMPLEX #60 tabs calcium carbonate 600 mg-vitamin See Rx Instructions .Route 05/17/23 05/27/23 Unknown Rx D3 20 mcg (800 unit) tablet .COMPLEX #30 tabs aripiprazole 10 mg tablet See Rx Instructions .Route 05/21/23 05/27/23 Unknown Rx .COMPLEX #30 tabs Allergies Allergy/AdvReac Type Severity Reaction Status Date / Time Sulfa (Sulfonamide Allergy Unknown Verified 05/27/23 15:31 Antibiotics) PFSH Acute PFSH: Medical History Chronic constipation Chronic organic brain syndrome Dry eyes Obsessive-compulsive disorder, unspecified On combination antipsychotic drug therapy Psychiatric care Raynaud's disease Severe intellectual disabilities Treacher Blank syndrome Surgical History History of eye surgery (~2007) multiple eye surgeries Family History Other Unknown family medical history Social History Smoking and tobacco status: never smoked Second hand smoke exposure: No Smoking risk assessment/counseling performed?: No Alcohol intake: never Desire information about alcohol rehabilitation?: No Counseling given: No Substance/Drug Use: never Desire information about substance/drug rehabilitation?: No Counseling given: No Adopted: Yes Caregiver/support person: Yes Lives independently: No Housing: House Marital status: Single Number of children: 0 Number of grandchildren: 0 service: No Current occupational exposures/hazards: No Pets and animals: No Sexually active: No Do you think of yourself as: Straight/Heterosexual Special mae needs: No Vitals/I&O/Wt Last Vital Signs Temp 97.4 F L 05/27/23 15:32 Pulse 114 H 05/27/23 16:44 Resp 18 05/27/23 16:44 BP 93/75 05/27/23 16:44 Pulse Ox 93 05/27/23 16:44 O2 Del Method Room Air 05/27/23 16:44 Weight last 48 hrs Weight 58.967 kg Physical Exam Narrative: Intellectually challenged Currently on 3l facemask Tachycardia Clinical signs of dehydration Blood pressure 93/95 m mercury Neuro exam limited S1, S2 tachycardia Abdomen soft Data 05/28/23 05:24 05/28/23 05:24 Micro: Microbiology 05/27/23 17:04 Blood Culture - Preliminary Blood SPECIMEN COLLECTED 05/27/23 17:04 Blood Culture - Preliminary Blood SPECIMEN COLLECTED A&P Assessment and plan (1) Pneumonia: (2) On combination antipsychotic drug therapy: (3) Dry eyes: (4) Chronic constipation: (5) Severe intellectual disabilities: (6) Treacher Blank syndrome: (7) Obsessive-compulsive disorder, unspecified: Qualifiers: Obsessive-compulsive disorder type: unspecified Qualified Code(s): F42.9 - Obsessive-compulsive disorder, unspecified Plan Community-acquired pneumonia Start ceftriaxone and azithromycin Request blood cultures, urine culture, urinalysis Blood cultures requested Patient is not showing signs of sepsis requiring 3L facemask Patient carry history of intellectual challenges, OCD, Raynaud's No acute exacerbation Productive cough: We will give her Mucinex, DuoNeb, prednisone 40 mg daily COVID PCR is negative Sinus tachycardia, check D-dimer rule out PE Likely related to underlying pneumonia noted sepsis, Clinically patient looks very dehydrated Full code GI soft diet DVT prophylaxis Lovenox Self interpretation of chest x-ray showed consolidation Attestations Medical Necessity Statement*: Anticipating discharge within 48 hours Diagnoses Pneumonia J18.9 On combination antipsychotic drug therapy Z79.899 Dry eyes H04.123 Chronic constipation K59.09 Severe intellectual disabilities F72 Treacher Blank syndrome Q75.4 Obsessive-compulsive disorder, unspecified F42.9 Obsessive-compulsive disorder type: unspecified
[2023-05-27 19:01] LABS: Procalcitonin 0.65 ng/mL (0-0.5)
[2023-05-27 19:28] LABS: D Dimer 0.66 ug/mIFEU (0-0.59)
[2023-05-27 19:56] VITALS: BP 100/68; PULSE 107; O2SAT 95
[2023-05-27 22:03] VITALS: BP 88/58; PULSE 114; RESP 18; TEMP 36.9; O2SAT 92
[2023-05-27] MEDS: enoxaparin 40 mg/0.4 mL Syringe SUBCUT (22:10)
[2023-05-27] MEDS: sodium chloride 0.9% 1,000 ML 100 ML IV (23:44)
[2023-05-27 23:57] VITALS: BP 98/64; PULSE 105; RESP 17; TEMP 36.8; O2SAT 94
--- NOTE | 2023-05-28 00:11 | PC.NURSE ---
Patient is nonverbal at baseline, caregiver is at bedside.
[2023-05-28 00:44] VITALS: PULSE 121; O2SAT 81
[2023-05-28 03:55] VITALS: BP 92/56; PULSE 106; RESP 17; TEMP 37.7; O2SAT 90
[2023-05-28 05:45] LABS: Basophils % 0.2 %; Hematocrit 33.3 % (37.0-47.0); Hemoglobin 11.1 g/dL (11.5-15.3); Lymphocytes # 1.3 10^3/uL (0.8-4.8); Lymphocytes % 26.6 %; Mean Corpuscular HGB Conc 33.3 g/dL (30.0-36.0); Mean Corpuscular Hemoglobin 32.2 pg (28.0-34.0); Mean Corpuscular Volume 96.5 fl (81-99); Mean Platelet Volume 11.8 fL (7.4-10.4); Monocytes # 0.2 10^3/uL (0.2-0.9); Monocytes % 3.4 %; Neutrophils # 3.29 10^3/uL (1.8-7.7); Neutrophils % 69.6 %; Nucleated Red Blood Cells % 0 %; Platelet Count 103 10^3/cmm (130-400); Red Blood Count 3.45 10^6/uL (4.1-5.3); Red Cell Distribution Width 12.3 % (12.1-15.1); White Blood Count 4.7 10^3/uL (4.0-10.0)
[2023-05-28 06:07] LABS: Blood Urea Nitrogen 8 mg/dL (6-20); C Reactive Protein 112.1 mg/L (0.0-4.9); Calcium 7.7 mg/dL (8.5-10.5); Carbon Dioxide 16 mmol/L (22-29); Chloride 117 mmol/L (98-107); Glomerular Filtration Rate 113.8 mL/min (90-130); Glucose 70 mg/dL (65-115); Magnesium 1.8 mg/dL (1.7-2.3); Osmolality Calculated 293 mOsm/kg (285-295); Phosphorus 2.6 mg/dL (2.5-4.5); Sodium 143 mmol/L (136-145)
[2023-05-28 06:11] LABS: Slide Review Slide Review Perform
[2023-05-28 06:12] LABS: Anion Gap 13.6 (5-19); Potassium 3.6 mmol/L (3.5-5.1)
[2023-05-28 08:00] VITALS: BP 98/62; PULSE 105; RESP 17; TEMP 37; O2SAT 94
[2023-05-28 08:38] VITALS: PULSE 105; O2SAT 94
[2023-05-28] MEDS: azithromycin 250 mg Tablet 500 MG PO (09:26)
--- NOTE | 2023-05-28 09:31 | ECG_ITS ---
[facility] Test Date: 2023-05-28 Pat Name: Shannon Tariq Department: Room: 277 Gender: Female Filling Hauler: : 1990 Requested By: Jasen Hudson Order Number: [id number] [place] MD: Dudley Parish M.D. Measurements Intervals [place] Rate: 105 P: 49 DC: 139 QRS: 12 QRSD: 100 T: -5 QT: 329 QTc: 435 Interpretive Statements SINUS TACHYCARDIA MODERATE T-WAVE ABNORMALITY, CONSIDER ANTERIOR ISCHEMIA [-0.1+ mV T-WAVE IN V3/V4] No previous ECG available for comparison Electronically Signed On 05-28-2023 11:48:45 CDT by Dudley Parish M.D. [email or web address]
[2023-05-28] MEDS: sodium chloride 0.9% 500 ML 999 ML IV (10:18)
--- NOTE | 2023-05-28 10:52 | P.DS_ITS ---
Discharge Providers Date of Admission: 05/27/23 19:22 Date of Discharge: May 28, 2023 Attending Provider at Admission: Jasen Hudson MD Attending Provider at Discharge: Jasen Hudson MD Primary Care Provider: ROULA Howard Diagnoses at Discharge Discharge Diagnosis (1) Pneumonia: Status: Acute (2) On combination antipsychotic drug therapy: Status: Acute (3) Dry eyes: Status: Chronic (4) Chronic constipation: Status: Chronic (5) Severe intellectual disabilities: Status: Chronic (6) Treacher Blank syndrome: Status: Chronic (7) Obsessive-compulsive disorder, unspecified: Status: Acute Qualifiers: Obsessive-compulsive disorder type: unspecified Qualified Code(s): F42.9 - Obsessive-compulsive disorder, unspecified Reason for Visit Reason for Visit: bob sent for labs/KUB/xray Hospital Course Hospital Course 33-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, nonverbal at baseline, complaint with a caregiver came in for shortness of breath and productive cough she was diagnosed with pneumonia, she was given ceftriaxone and azithromycin, low-grade fever noted, initially she was requiring 3 L facemask however on room air she was saturating 91%, requested home oxygen evaluation before discharge, cultures negative, she was sinus tachycardic D-dimer unremarkable, extremely dehydrated urine is concentrated dark orange color patient was retaining urine and required Centeno catheter placement, as per the caregiver patient tends to hold urine for long period of time, her p.o. intake is 32 ounces a day she is not a big eater. She has been given at least more than 3 L of IV fluids in the hospital, I will discharge her on azithromycin and albuterol. Her roommate has been tested positive with mycoplasma pneumonia. We will remove Centeno catheter before her discharge from the hospital Patient's blood pressure ranges between 98-1 08 systolic millimeters mercury, previous review of vitals showed the same pattern, I am giving her 500 mL bolus before her discharge from the hospital Physical Exam Narrative: Patient is nonverbal Currently saturating 91% on room air Clinically looks dehydrated Centeno catheter with concentrated urine, will be removed before discharge Neuro exam is limited No audible stridor or wheezing Discharge Data Studies Completed and Pending Completed Studies During Hospitalization Category Date Time Status XR chest 1V portable [id number] Stat Exams 05/27/23 15:03 Completed Pending at discharge Category Date Time Status Blood Culture Stat Lab 05/27/23 17:04 Results MRSA by PCR Stat Lab 05/27/23 19:27 Received Sputum Culture and Gram Stain Stat Lab 05/27/23 18:19 Uncollected Radiology Impressions Chest X-Ray 05/27/23 15:03 IMPRESSION: Left lower lobe parenchymal density consistent with pneumonia Laboratory Results WBC 4.7 10^3/uL (4.0-10.0) 05/28/23 05:24 RBC 3.45 10^6/uL (4.1-5.3) L 05/28/23 05:24 Hgb 11.1 g/dL (11.5-15.3) L 05/28/23 05:24 Hct 33.3 % (37.0-47.0) L 05/28/23 05:24 MCV 96.5 fl (81-99) 05/28/23 05:24 MCH 32.2 pg (28.0-34.0) 05/28/23 05:24 MCHC 33.3 g/dL (30.0-36.0) D 05/28/23 05:24 RDW 12.3 % (12.1-15.1) 05/28/23 05:24 Plt Count 103 10^3/cmm (130-400) L 05/28/23 05:24 MPV 11.8 fL (7.4-10.4) H 05/28/23 05:24 Neut % (Auto) 69.6 % 05/28/23 05:24 Lymph % (Auto) 26.6 % 05/28/23 05:24 Williamson % (Auto) 3.4 % 05/28/23 05:24 Eos % (Auto) 0.0 % 05/28/23 05:24 Baso % (Auto) 0.2 % 05/28/23 05:24 Neut # (Auto) 3.29 10^3/uL (1.8-7.7) 05/28/23 05:24 Lymph # (Auto) 1.3 10^3/uL (0.8-4.8) 05/28/23 05:24 Williamson # (Auto) 0.2 10^3/uL (0.2-0.9) 05/28/23 05:24 Eos # (Auto) 0.0 10^3/uL (0.0-0.8) 05/28/23 05:24 Baso # (Auto) 0.0 10^3/uL (0.0-0.1) 05/28/23 05:24 Nucleated RBC % (auto) 0 % 05/28/23 05:24 Nucleated RBCs # 0.0 /100WBC 05/28/23 05:24 D-Dimer 0.66 ug/mIFEU (0-0.59) H 05/27/23 19:05 Sodium 143 mmol/L (136-145) 05/28/23 05:24 Potassium 3.6 mmol/L (3.5-5.1) 05/28/23 05:24 Chloride 117 mmol/L (98-107) H 05/28/23 05:24 Carbon Dioxide 16 mmol/L (22-29) L 05/28/23 05:24 Anion Gap 13.6 (5-19) 05/28/23 05:24 BUN 8 mg/dL (6-20) 05/28/23 05:24 Creatinine 0.6 mg/dL (0.5-0.9) 05/28/23 05:24 GFR Calculation 113.8 mL/min (90-130) 05/28/23 05:24 Glucose 70 mg/dL (65-115) 05/28/23 05:24 Calculated Osmolality 293 mOsm/kg (285-295) 05/28/23 05:24 Lactic Acid 0.7 mmol/L (0.5-2.2) 05/27/23 17:04 Calcium 7.7 mg/dL (8.5-10.5) L 05/28/23 05:24 Phosphorus 2.6 mg/dL (2.5-4.5) 05/28/23 05:24 Magnesium 1.8 mg/dL (1.7-2.3) 05/28/23 05:24 Total Bilirubin 0.2 mg/dL (0.15-1.2) 05/27/23 15:16 AST 28 U/L (0-32) 05/27/23 15:16 ALT 26 U/L (0-33) 05/27/23 15:16 Alkaline Phosphatase 53 U/L (35-105) 05/27/23 15:16 C-Reactive Protein 112.1 mg/L (0.0-4.9) H 05/28/23 05:24 Total Protein 7.1 g/dL (6.6-8.7) 05/27/23 15:16 Albumin 3.4 g/dL (3.5-5.2) L 05/27/23 15:16 Globulin 3.7 g/dL (1.3-4.6) 05/27/23 15:16 Procalcitonin 0.65 ng/mL (0-0.5) H 05/27/23 15:16 SARS-CoV-2 Ag (Rapid) negative (Negative) 05/27/23 17:12 Vitals Last Vital Signs Temp 98.6 F 05/28/23 08:00 Pulse 105 H 05/28/23 08:38 Resp 17 05/28/23 08:00 BP 98/62 05/28/23 08:00 Pulse Ox 94 05/28/23 08:38 O2 Del Method Oxymask 05/28/23 08:38 O2 Flow Rate 3 05/28/23 08:38 Discharge Plan Discharge Patient Disposition: Home Condition: Stable Prescriptions: New albuterol sulfate 90 mcg/actuation HFA aerosol inhaler 2 inh inhalation Q8H PRN (Reason: shortness of breath or wheezing) Qty: 6.7 0RF azithromycin 500 mg tablet 500 mg PO DAILY 7 Days Qty: 7 0RF Continued acetaminophen [Tylenol] 325 mg capsule 650 mg PO Q6H PRN (Reason: fever or pain) Qty: 30 5RF Rx Instructions: for pain or elevated temp > 101F alum-mag hydroxide-simeth [Felicia-Lanta] 200-200-20 mg/5 mL suspension 30 ml PO QID PRN (Reason: indigestion) Qty: 355 0RF Rx Instructions: administer between meals lactulose 10 gram/15 mL solution 20 g PO DAILY PRN (Reason: constipation) 30 Days Qty: 900 11RF Rx Instructions: May hold if loose stools loperamide 2 mg tablet 2 mg PO Q3H PRN (Reason: loose stool) 30 Days Qty: 32 11RF Rx Instructions: 1 tab after each loose stool, NTE 8 doses or 16mg in 24 hours Niva-Plus 27 mg iron- 1 mg tablet See Rx Instructions PO .COMPLEX 30 Days Qty: 30 11RF Rx Instructions: 1 tab daily PO; omega-3 fatty acids 1,000 mg capsule 2,000 mg PO DAILY 30 Days Qty: 60 11RF sennosides [Senna Laxative] 8.6 mg tablet 8.6 mg PO BID Qty: 60 11RF sunscreen Lotion See Rx Instructions TOPICAL 6XD PRN (Reason: sun exposure) Qty: 118 11RF Rx Instructions: Use SPF 50 topical 6 times daily PRN; apply at least 30 minutes before sun exposure topiramate [Topamax] 50 mg tablet 50 mg PO QAM Qty: 30 2RF hydrocortisone 0.5 % cream 1 applic topical BID PRN (Reason: skin irritation) Qty: 28.4 5RF promethazine-DM 6.25-15 mg/5 mL syrup 5 ml PO Q6H PRN (Reason: cough) Qty: 240 5RF clonazepam 1 mg tablet 1 mg PO DAILY PRN (Reason: anxiety) Qty: 30 0RF benztropine 1 mg tablet See Rx Instructions .ROUTE .COMPLEX Qty: 90 2RF Dose Instruction: TAKE ONE TABLET BY MOUTH THREE TIMES DAILY Rx Instructions: TAKE ONE TABLET BY MOUTH THREE TIMES DAILY magnesium hydroxide [Milk of Magnesia] 400 mg/5 mL suspension 15 ml PO BID PRN (Reason: constipation) 30 Days Qty: 900 11RF Rx Instructions: may hold if loose stools clonazepam 0.5 mg tablet 0.5 mg PO TID Qty: 90 2RF medroxyprogesterone 150 mg/mL suspension See Rx Instructions .ROUTE .COMPLEX Qty: 1 3RF Dose Instruction: inject 1ml INTRAMUSCULARLY every THREE MONTHS Rx Instructions: inject 1ml INTRAMUSCULARLY every THREE MONTHS fluvoxamine 100 mg tablet See Rx Instructions .ROUTE .COMPLEX Qty: 90 2RF Dose Instruction: TAKE ONE TABLET BY MOUTH in THE morning AND 2 tablets AT BEDTIME Rx Instructions: TAKE ONE TABLET BY MOUTH in THE morning AND 2 tablets AT BEDTIME quetiapine 400 mg tablet extended release 24 hr See Rx Instructions .ROUTE .COMPLEX Qty: 60 2RF Dose Instruction: TAKE ONE TABLET BY MOUTH TWICE DAILY Rx Instructions: TAKE ONE TABLET BY MOUTH TWICE DAILY calcium carbonate-vitamin D3 600 mg-20 mcg (800 unit) tablet See Rx Instructions .ROUTE .COMPLEX Qty: 30 12RF Dose Instruction: TAKE ONE TABLET BY MOUTH EVERY DAY Rx Instructions: TAKE ONE TABLET BY MOUTH EVERY DAY aripiprazole 10 mg tablet See Rx Instructions .ROUTE .COMPLEX Qty: 30 2RF Dose Instruction: TAKE ONE TABLET BY MOUTH EVERY DAY Rx Instructions: TAKE ONE TABLET BY MOUTH EVERY DAY Discharge Orders: Discharge Order (Routine); Ordered 05/28/23 Ordered By: Jasen Hudson Referrals: Juni Marrufo, ROULA [Primary Care Provider] - Patient Instructions: Opioid Safety Discharge Attestations Time Spent in Discharge Care*: greater than 30 min Quality Metrics Clinical Quality Measures [ No reported AMI, CVA or VTE this stay] Coding Level of Care Code Acute Code for Chg Fwd Diagnoses Pneumonia J18.9 On combination antipsychotic drug therapy Z79.899 Dry eyes H04.123 Chronic constipation K59.09 Severe intellectual disabilities F72 Treacher Blank syndrome Q75.4 Obsessive-compulsive disorder, unspecified F42.9 Obsessive-compulsive disorder type: unspecified
[2023-05-28] MEDS: cefTRIAXone 1,000 MG in sodium chloride 0.9% (plus) 50 ML 100 MG IV (11:01)
[2023-05-28 12:00] VITALS: BP 98/61; PULSE 105; RESP 16; TEMP 37; O2SAT 93
[2023-05-28 13:10] VITALS: O2SAT 93; O2SAT 94
== END 2023-05-28 13:10 | disposition home or self-care (01) ==
LOC: ER 17:24 → MEDSURG 05-28 10:53
PROVIDERS: Admitting Provider Internal Medicine; Emergency Provider Emergency Medicine; PCP Nurse Practitioner; Visit Provider Internal Medicine
DX: J18.9 Pneumonia, unspecified organism (principal); E86.0 Dehydration; Q75.4 Mandibulofacial dysostosis; K59.03 Drug induced constipation; F42.9 Obsessive-compulsive disorder, unspecified; F72 Severe intellectual disabilities; I73.00 Raynaud's syndrome without gangrene; R00.0 Tachycardia, unspecified; R33.9 Retention of urine, unspecified; Z20.818 Contact with and (suspected) exposure to other bacterial communicable diseases
CPT/HCPCS: 36415; 51702; 71045; 80048; 80053; 83605; 83735; 84100; 84145; 85025; 85378; 86140; 86403; 87040; 87426; 87449; 87641; 93005; 94760; 96361; 96365; 96367; 96372; 99285; G0378; J0456; J0696; J1650; J1956; J7030; J7040; J7050; Q0144

== ENCOUNTER → 2023-06-04 08:41 | Outpatient (BNVA) | payer MEDICAID, SELFPAY | PROVIDERS: PCP Nurse Practitioner; Visit Provider Nurse Practitioner | DX: J18.9 Pneumonia, unspecified organism (principal) | CPT/HCPCS: 80053; 85025 ==

== ENCOUNTER → 2023-06-25 10:15 | Outpatient (BNVA) | payer MEDICAID, SELFPAY | PROVIDERS: PCP Nurse Practitioner; Visit Provider Nurse Practitioner | DX: J18.9 Pneumonia, unspecified organism (principal); K59.09 Other constipation | CPT/HCPCS: 71046; 74018 ==

== ENCOUNTER → 2023-07-30 13:11 | Outpatient (BNVA) | payer MEDICAID, SELFPAY | PROVIDERS: PCP Nurse Practitioner; Visit Provider Nurse Practitioner | DX: K59.09 Other constipation (principal); Z87.01 Personal history of pneumonia (recurrent) | CPT/HCPCS: 71046; 74018 ==

== ENCOUNTER → 2024-01-10 11:20 | Outpatient (BNVA) | payer MEDICAID, SELFPAY | PROVIDERS: PCP Nurse Practitioner; Visit Provider Nurse Practitioner Women's Health | DX: Z12.4 Encounter for screening for malignant neoplasm of cervix (principal); K59.09 Other constipation; Z76.0 Encounter for issue of repeat prescription; F42.9 Obsessive-compulsive disorder, unspecified | CPT/HCPCS: 87624 ==

== ENCOUNTER → 2024-02-13 13:10 | Outpatient (BNVA) | payer MEDICAID, SELFPAY | PROVIDERS: PCP Nurse Practitioner; Visit Provider Nurse Practitioner | DX: Z79.899 Other long term (current) drug therapy (principal) | CPT/HCPCS: 80061; 83036 ==

== ENCOUNTER → 2024-07-09 11:22 | Outpatient (BNVA) | payer MEDICAID, SELFPAY | PROVIDERS: PCP Nurse Practitioner; Visit Provider Nurse Practitioner | DX: F42.9 Obsessive-compulsive disorder, unspecified | CPT/HCPCS: 80053; 84443; 85025 ==

== ENCOUNTER 2025-05-04 12:09 | Outpatient (CLI) | payer MEDICAID, SELFPAY ==
--- NOTE | 2025-05-04 15:00 | XR_ITS ---
WS: [id number] DEXA (DUAL ENERGY X-RAY ABSORPTIOMETRY) Bone mineral density was performed using a [employer] machine. HISTORY: Z79.899 - Other snf (current) drug therapy COMPARISON: None available. Lumbar spine BMD (L1-L4): 1.095 g/cm2 T score: -0.7 Z score: -0.9 Total hip BMD: Left: 0.696 g/cm2. T score: -2.5 Z score: -2.4 Right: 0.682 g/cm2. T score: -2.6 Z score: -2.5 XR/XR DEXA axial skeleton* [id number] IMPRESSION: OSTEOPOROSIS based upon the WHO classification for females.
== END 2025-05-04 12:10 | disposition home or self-care (01) ==
PROVIDERS: PCP Nurse Practitioner; Visit Provider Nurse Practitioner Women's Health
DX: Z79.899 Other long term (current) drug therapy (principal); Z91.89 Other specified personal risk factors, not elsewhere classified; M81.0 Age-related osteoporosis without current pathological fracture
CPT/HCPCS: 77080

== ENCOUNTER → 2025-05-05 10:41 | Outpatient (BNVA) | payer MEDICAID, SELFPAY | PROVIDERS: PCP Nurse Practitioner; Visit Provider Nurse Practitioner | DX: Z79.899 Other long term (current) drug therapy (principal) | CPT/HCPCS: 80061; 83036 ==

== ENCOUNTER → 2025-05-12 12:23 | Outpatient (BNVA) | payer MEDICAID, SELFPAY | PROVIDERS: PCP Nurse Practitioner; Visit Provider Nurse Practitioner Women's Health | DX: Z79.899 Other long term (current) drug therapy (principal); Z01.419 Encounter for gynecological examination (general) (routine) without abnormal findings | CPT/HCPCS: 82306 ==

== ENCOUNTER → 2025-07-06 14:03 | Outpatient (BNVA) | payer MEDICAID, SELFPAY | PROVIDERS: PCP Nurse Practitioner; Visit Provider Nurse Practitioner | DX: Z71.89 Other specified counseling (principal); F72 Severe intellectual disabilities; K59.09 Other constipation | CPT/HCPCS: 80053; 84443; 85025 ==